=== PATIENT | female | born 1950 ===

== ENCOUNTER → 2017-11-09 | Outpatient (CLI) | payer MEDICARE ==
[~2017-11-09] MED LIST: ALBU8.5H IH; ASPI81TA94 PO; ATOR-1 PO; ATOR10TA24 PO; ATOR40TA24 PO; CALC-852 PO; CAR6.25 PO; METF-411 PO; METF-415 PO; POTA20TA85 PO; SCOT TD; TICA90TA PO; [UNRECOGNIZED DRUG - CODE] PO
[2017-11-09 11:09] LABS: PLATELET COUNT, AUTOMATED 284 K/uL (150-450)
== END ==
LOC: LAB 09:40
PROVIDERS: ATTEND Nurse Practitioner Primary Care
DX: E11.9 Type 2 diabetes mellitus without complications (principal); E78.00 Pure hypercholesterolemia, unspecified; R23.8 Other skin changes
CPT/HCPCS: 36415; 82040; 82247; 82310; 82374; 82435; 82565; 82947; 83036; 84075; 84132; 84155; 84295; 84450; 84460; 84520; 85025

== ENCOUNTER → 2017-11-09 | Outpatient (CLI) | payer MEDICARE ==
--- NOTE | 2017-11-09 12:11 | EKG ---
FACILITY: [facility] PATIENT NAME: UVALDO VAUGHN : [id number] MR: [id number]: [id number] EXAM DATE: ORDERING PHYSICIAN: KAYLEY JIMENEZ TECHNOLOGIST: NAYELIRN Test Reason : DIZZINESS Blood Pressure : / mmHG Vent. Rate : 057 BPM Atrial Rate : 057 BPM P-R Int : 162 ms QRS Dur : 074 ms QT Int : 414 ms P-R-T Axes : 073 043 085 degrees QTc Int : 402 ms Sinus bradycardia Low voltage QRS Borderline ECG No previous ECGs available Referred By: Confirmed By:
== END ==
LOC: RESP 11:14
PROVIDERS: ATTEND Nurse Practitioner Primary Care
DX: Z02.9 Encounter for administrative examinations, unspecified (principal)